=== PATIENT | male | born 1960 | race Caucasian/White ===

== ENCOUNTER 2018-02-13 08:57 | Emergency (ER) | payer OTHER ==
[2018-02-13] MEDS: PROCHLORPERAZINE 10 MG INJ IV (09:41)
[2018-02-13] MEDS: KETOROLAC 15 MG INJ IV (09:41)
[2018-02-13] MEDS: DIPHENHYDRAMINE 50 MG INJ IV (09:41)
[2018-02-13] MEDS: SOD CHLORIDE 0.9% 1,000 ML IV (09:41)
[2018-02-13 09:52] LABS: ADD MAN DIFF? NO
[2018-02-13 10:14] LABS: ANION GAP 19 (8-16); BLOOD UREA NITROGEN 18 mg/dl (7-20); CALCIUM 10.2 mg/dl (8.4-10.2); CARBON DIOXIDE 32 mmol/L (21-31); CHLORIDE 106 mmol/L (97-110); CREATININE 0.82 mg/dl (0.61-1.24); GLUCOSE 99 mg/dl (70-220); POTASSIUM 4.5 mmol/L (3.5-5.1); SODIUM 152 mmol/L (135-144)
[2018-02-13 10:36] LABS: BASOPHIL # 0.1 10^3/ul (0.0-0.1); BASOPHILS % 0.8 % (0.0-2.0); EOSINOPHILS # 0.2 10^3/ul (0.0-0.5); EOSINOPHILS % 2.5 % (0.0-7.0); HEMATOCRIT 45.9 % (42.0-52.0); HEMOGLOBIN 15.3 g/dl (14.0-18.0); LYMPHOCYTES # 2.2 10^3/ul (0.8-2.9); LYMPHOCYTES % 36.2 % (15.0-51.0); MEAN CORPUSCULAR HEMOGLOBIN 31.4 pg (29.0-33.0); MEAN CORPUSCULAR HGB CONC 33.3 g/dl (32.0-37.0); MEAN CORPUSCULAR VOLUME 94.1 fl (82.0-101.0); MEAN PLATELET VOLUME 11.2 fl (7.4-10.4); MONOCYTE # 0.4 10^3/ul (0.3-0.9); MONOCYTES % 7.3 % (0.0-11.0); NEUTROPHIL # 3.2 10^3/ul (1.6-7.5); NEUTROPHILS % 52.9 % (39.0-77.0); PLATELET COUNT 270 10^3/UL (140-415); RED BLOOD COUNT 4.88 10^6/ul (4.70-6.10); RED CELL DISTRIBUTION WIDTH 12.6 % (11.5-14.5)
== END 2018-02-13 12:11 | disposition home or self-care (01) ==
LOC: E/R 08:57
DX: R51 Headache (principal); I25.10 Atherosclerotic heart disease of native coronary artery without angina pectoris; Z98.61 Coronary angioplasty status
CPT/HCPCS: 36415; 70450; 80048; 85025; 96374; 96375; 99285-25

== ENCOUNTER 2018-05-23 10:08 | Inpatient (IN) | payer OTHER ==
[2018-05-23] MEDS: ASPIRIN 325 MG TAB PO (10:41)
[2018-05-23] MEDS: NITROGLYCERIN 2% 1 GM OINT PKT TD (10:41)
[2018-05-23] MEDS: ONDANSETRON 4 MG INJ IV (10:41)
[2018-05-23] MEDS: HYDROmorphONE 1 MG/ML SYG IV (10:41)
[2018-05-23 10:42] LABS: ADD MAN DIFF? NO
[2018-05-23 10:46] LABS: BASOPHILS % 0.8 % (0.0-2.0); EOSINOPHILS # 0.1 10^3/ul (0.0-0.5); EOSINOPHILS % 2.5 % (0.0-7.0); HEMATOCRIT 43.6 % (42.0-52.0); HEMOGLOBIN 14.4 g/dl (14.0-18.0); LYMPHOCYTES # 1.8 10^3/ul (0.8-2.9); LYMPHOCYTES % 36.6 % (15.0-51.0); MEAN CORPUSCULAR HEMOGLOBIN 31.2 pg (29.0-33.0); MEAN CORPUSCULAR VOLUME 94.4 fl (82.0-101.0); MEAN PLATELET VOLUME 11.1 fl (7.4-10.4); MONOCYTE # 0.4 10^3/ul (0.3-0.9); MONOCYTES % 7.3 % (0.0-11.0); NEUTROPHIL # 2.5 10^3/ul (1.6-7.5); NEUTROPHILS % 52.6 % (39.0-77.0); PLATELET COUNT 204 10^3/UL (140-415); RED BLOOD COUNT 4.62 10^6/ul (4.70-6.10); RED CELL DISTRIBUTION WIDTH 12.8 % (11.5-14.5)
[2018-05-23 10:46] LABS: WHITE BLOOD COUNT 4.8 10^3/ul (4.8-10.8)
[2018-05-23 11:02] LABS: ANION GAP 11 (8-16); BLOOD UREA NITROGEN 14 mg/dl (7-20); CALCIUM 9.5 mg/dl (8.4-10.2); CARBON DIOXIDE 27 mmol/L (21-31); CHLORIDE 112 mmol/L (97-110); CREATININE 0.82 mg/dl (0.61-1.24); GLUCOSE 89 mg/dl (70-220); SODIUM 146 mmol/L (135-144)
[2018-05-23 11:13] LABS: TROPONIN-I < 0.010 ng/ml (0.000-0.120)
[2018-05-23] MEDS ORDERED: ONDANSETRON 4 MG INJ IV (12:00)
[2018-05-23 14:35] LABS: CHOL/HDL RATIO 2.9 RATIO; HDL CHOLESTEROL 60 mg/dl (28-71); LDL CHOLESTEROL,CALCULATED 88 mg/dl; TRIGLYCERIDES 138 mg/dl (0-149)
[2018-05-23 14:35] LABS: CHOLESTEROL 176 mg/dl (100-200)
[2018-05-23 15:12] LABS: HEMOGLOBIN A1C 5.5 % (0-5.9)
[2018-05-23] MEDS: ACETAMINOPHEN 325 MG TAB PO (15:13)
[2018-05-23 17:14] LABS: TROPONIN-I < 0.010 ng/ml (0.000-0.120)
[2018-05-23] MEDS: ATORVASTATIN 40 MG TAB PO (20:06)
[2018-05-23] MEDS: IBUPROFEN 400 MG TAB PO (23:15)
[2018-05-23] MEDS: ZOLPIDEM 5 MG TAB PO (23:49)
[2018-05-24 00:04] LABS: TROPONIN-I < 0.010 ng/ml (0.000-0.120)
[2018-05-24 08:03] LABS: ADD MAN DIFF? NO
[2018-05-24 08:06] LABS: WHITE BLOOD COUNT 5.4 10^3/ul (4.8-10.8)
[2018-05-24 08:06] LABS: BASOPHILS % 0.7 % (0.0-2.0); EOSINOPHILS # 0.2 10^3/ul (0.0-0.5); EOSINOPHILS % 2.8 % (0.0-7.0); HEMATOCRIT 42.4 % (42.0-52.0); LYMPHOCYTES # 1.8 10^3/ul (0.8-2.9); LYMPHOCYTES % 33.1 % (15.0-51.0); MEAN CORPUSCULAR HEMOGLOBIN 31.3 pg (29.0-33.0); MEAN CORPUSCULAR VOLUME 94.9 fl (82.0-101.0); MEAN PLATELET VOLUME 11.7 fl (7.4-10.4); MONOCYTE # 0.4 10^3/ul (0.3-0.9); MONOCYTES % 8.1 % (0.0-11.0); NEUTROPHILS % 55.1 % (39.0-77.0); PLATELET COUNT 202 10^3/UL (140-415); RED BLOOD COUNT 4.47 10^6/ul (4.70-6.10); RED CELL DISTRIBUTION WIDTH 12.5 % (11.5-14.5)
[2018-05-24 08:31] LABS: ANION GAP 12 (8-16); BLOOD UREA NITROGEN 17 mg/dl (7-20); CALCIUM 9.3 mg/dl (8.4-10.2); CARBON DIOXIDE 28 mmol/L (21-31); CHLORIDE 106 mmol/L (97-110); CREATININE 0.91 mg/dl (0.61-1.24); GLUCOSE 76 mg/dl (70-220); MAGNESIUM 2.1 mg/dl (1.7-2.5); PHOSPHORUS 3.3 mg/dl (2.5-4.9); POTASSIUM 4.4 mmol/L (3.5-5.1); SODIUM 142 mmol/L (135-144)
[2018-05-24] MEDS: CITALOPRAM 20 MG TAB PO (08:48)
[2018-05-24] MEDS: CHOLECALCIFEROL 2,000 UNIT CAP PO (08:48)
[2018-05-24] MEDS: ASPIRIN (EC) 81 MG TAB PO (08:48)
[2018-05-24] MEDS: LEVOTHYROXINE 25 MCG TAB PO (08:48)
[2018-05-24] MEDS: GABAPENTIN 100 MG CAP PO (08:48)
[2018-05-24] MEDS ORDERED: DOCUSATE SODIUM 100 MG CAP PO (20:30)
[2018-05-24] MEDS ORDERED: morphine 2 MG INJ IV (20:30)
[2018-05-24] MEDS ORDERED: HYDROCODONE/APAP (10/325) TAB PO (20:30)
[2018-05-24] MEDS: ZOLPIDEM 5 MG TAB PO (21:39)
[2018-05-24] MEDS: ATORVASTATIN 40 MG TAB PO (21:39)
[2018-05-25 07:40] LABS: ADD MAN DIFF? NO
[2018-05-25 07:41] LABS: BASOPHIL # 0.1 10^3/ul (0.0-0.1); EOSINOPHILS # 0.1 10^3/ul (0.0-0.5); EOSINOPHILS % 2.2 % (0.0-7.0); HEMATOCRIT 43.7 % (42.0-52.0); HEMOGLOBIN 14.4 g/dl (14.0-18.0); LYMPHOCYTES # 2.1 10^3/ul (0.8-2.9); LYMPHOCYTES % 34.8 % (15.0-51.0); MEAN CORPUSCULAR HEMOGLOBIN 30.9 pg (29.0-33.0); MEAN CORPUSCULAR VOLUME 93.8 fl (82.0-101.0); MEAN PLATELET VOLUME 11.1 fl (7.4-10.4); MONOCYTE # 0.5 10^3/ul (0.3-0.9); MONOCYTES % 8.3 % (0.0-11.0); NEUTROPHIL # 3.2 10^3/ul (1.6-7.5); NEUTROPHILS % 53.5 % (39.0-77.0); PLATELET COUNT 210 10^3/UL (140-415); RED BLOOD COUNT 4.66 10^6/ul (4.70-6.10); RED CELL DISTRIBUTION WIDTH 12.5 % (11.5-14.5)
[2018-05-25 07:49] LABS: HEMOGLOBIN A1C 5.6 % (0-5.9)
[2018-05-25 08:05] LABS: INR 0.95; PROTIME 12.8 Sec (11.9-14.9)
[2018-05-25 08:19] LABS: LIPASE 35 U/L (23-300)
[2018-05-25 08:20] LABS: ALANINE AMINOTRANSFERASE 27 IU/L (13-69); ALBUMIN 4.6 g/dl (3.3-4.9); ALBUMIN/GLOBULIN RATIO 1.64; ALKALINE PHOSPHATASE 74 IU/L (42-121); ANION GAP 11 (8-16); ASPARTATE AMINO TRANSFERASE 26 IU/L (15-46); BLOOD UREA NITROGEN 17 mg/dl (7-20); CALCIUM 9.3 mg/dl (8.4-10.2); CARBON DIOXIDE 28 mmol/L (21-31); CHLORIDE 107 mmol/L (97-110); CREATININE 0.85 mg/dl (0.61-1.24); GLUCOSE 90 mg/dl (70-220); MAGNESIUM 2.1 mg/dl (1.7-2.5); PHOSPHORUS 3.3 mg/dl (2.5-4.9); POTASSIUM 4.6 mmol/L (3.5-5.1); SODIUM 141 mmol/L (135-144); TOTAL PROTEIN 7.4 g/dl (6.1-8.1)
[2018-05-25] MEDS: CHOLECALCIFEROL 2,000 UNIT CAP PO (09:07)
[2018-05-25] MEDS: GABAPENTIN 100 MG CAP PO (09:07)
[2018-05-25] MEDS: ASPIRIN (EC) 81 MG TAB PO (09:07)
[2018-05-25] MEDS: LEVOTHYROXINE 25 MCG TAB PO (09:07)
[2018-05-25] MEDS: CITALOPRAM 20 MG TAB PO (09:07)
[2018-05-25] MEDS: ENOXAPARIN 40 MG/0.4 ML SYG SC (09:11)
[2018-05-25] MEDS: ZOLPIDEM 5 MG TAB PO (20:58)
[2018-05-25] MEDS: ATORVASTATIN 40 MG TAB PO (20:58)
[2018-05-25] MEDS: IBUPROFEN 400 MG TAB PO (20:58)
[2018-05-26 07:26] LABS: ADD MAN DIFF? NO
[2018-05-26 07:39] LABS: BASOPHIL # 0.1 10^3/ul (0.0-0.1); BASOPHILS % 1.2 % (0.0-2.0); EOSINOPHILS # 0.1 10^3/ul (0.0-0.5); EOSINOPHILS % 1.5 % (0.0-7.0); HEMATOCRIT 44.9 % (42.0-52.0); HEMOGLOBIN 15.1 g/dl (14.0-18.0); LYMPHOCYTES # 1.9 10^3/ul (0.8-2.9); LYMPHOCYTES % 31.7 % (15.0-51.0); MEAN CORPUSCULAR HEMOGLOBIN 31.4 pg (29.0-33.0); MEAN CORPUSCULAR HGB CONC 33.6 g/dl (32.0-37.0); MEAN CORPUSCULAR VOLUME 93.3 fl (82.0-101.0); MEAN PLATELET VOLUME 11.2 fl (7.4-10.4); MONOCYTE # 0.6 10^3/ul (0.3-0.9); MONOCYTES % 9.1 % (0.0-11.0); NEUTROPHIL # 3.4 10^3/ul (1.6-7.5); NEUTROPHILS % 56.3 % (39.0-77.0); PLATELET COUNT 212 10^3/UL (140-415); RED BLOOD COUNT 4.81 10^6/ul (4.70-6.10); RED CELL DISTRIBUTION WIDTH 12.3 % (11.5-14.5)
[2018-05-26 07:39] LABS: WHITE BLOOD COUNT 6.1 10^3/ul (4.8-10.8)
[2018-05-26 07:52] LABS: ALANINE AMINOTRANSFERASE 28 IU/L (13-69); ALBUMIN 4.6 g/dl (3.3-4.9); ALBUMIN/GLOBULIN RATIO 1.53; ALKALINE PHOSPHATASE 79 IU/L (42-121); ANION GAP 14 (8-16); ASPARTATE AMINO TRANSFERASE 31 IU/L (15-46); BILIRUBIN,INDIRECT 1.1 mg/dl (0-1.1); BILIRUBIN,TOTAL 1.1 mg/dl (0.2-1.3); BLOOD UREA NITROGEN 22 mg/dl (7-20); CALCIUM 9.4 mg/dl (8.4-10.2); CARBON DIOXIDE 27 mmol/L (21-31); CHLORIDE 105 mmol/L (97-110); CREATININE 0.91 mg/dl (0.61-1.24); GLUCOSE 89 mg/dl (70-220); MAGNESIUM 2.1 mg/dl (1.7-2.5); PHOSPHORUS 3.4 mg/dl (2.5-4.9); POTASSIUM 4.8 mmol/L (3.5-5.1); SODIUM 141 mmol/L (135-144); TOTAL PROTEIN 7.6 g/dl (6.1-8.1)
[2018-05-26 07:58] LABS: LIPASE 47 U/L (23-300)
[2018-05-26 08:00] LABS: TROPONIN-I < 0.010 ng/ml (0.000-0.120)
[2018-05-26 08:01] LABS: INR 1.03; PROTIME 13.6 Sec (11.9-14.9); PT RATIO 1.1
[2018-05-26] MEDS: CITALOPRAM 20 MG TAB PO (08:44)
[2018-05-26] MEDS: LEVOTHYROXINE 25 MCG TAB PO (08:44)
[2018-05-26] MEDS: ASPIRIN (EC) 81 MG TAB PO (08:44)
[2018-05-26] MEDS: GABAPENTIN 100 MG CAP PO (08:44)
[2018-05-26] MEDS: CHOLECALCIFEROL 2,000 UNIT CAP PO (08:45)
[2018-05-26] MEDS: ENOXAPARIN 40 MG/0.4 ML SYG SC (09:04)
[2018-05-26] MEDS: SOD CHLORIDE 0.45% 1,000 ML IV (12:14)
[2018-05-26] MEDS: BISACODYL (EC) 5 MG TAB PO ×2 (14:42→16:54)
[2018-05-26 15:06] LABS: HEMATOCRIT 41.6 % (42.0-52.0); HEMOGLOBIN 14.3 g/dl (14.0-18.0)
[2018-05-26] MEDS: PEG/ELECTROLYTES 4L BTL PO (16:55)
[2018-05-26] MEDS: ATORVASTATIN 40 MG TAB PO (21:27)
[2018-05-26] MEDS: ZOLPIDEM 5 MG TAB PO (21:52)
[2018-05-27] MEDS: BISACODYL (EC) 5 MG TAB PO (04:49)
[2018-05-27] MEDS: PEG/ELECTROLYTES 4L BTL PO (04:49)
[2018-05-27 07:58] LABS: ADD MAN DIFF? NO
[2018-05-27 08:03] LABS: BASOPHIL # 0.1 10^3/ul (0.0-0.1); BASOPHILS % 0.9 % (0.0-2.0); EOSINOPHILS # 0.1 10^3/ul (0.0-0.5); EOSINOPHILS % 2.2 % (0.0-7.0); HEMATOCRIT 45.2 % (42.0-52.0); LYMPHOCYTES # 2.3 10^3/ul (0.8-2.9); LYMPHOCYTES % 35.3 % (15.0-51.0); MEAN CORPUSCULAR HEMOGLOBIN 30.4 pg (29.0-33.0); MEAN CORPUSCULAR HGB CONC 33.2 g/dl (32.0-37.0); MEAN CORPUSCULAR VOLUME 91.7 fl (82.0-101.0); MEAN PLATELET VOLUME 11.3 fl (7.4-10.4); MONOCYTE # 0.6 10^3/ul (0.3-0.9); MONOCYTES % 9.7 % (0.0-11.0); NEUTROPHIL # 3.3 10^3/ul (1.6-7.5); NEUTROPHILS % 51.6 % (39.0-77.0); PLATELET COUNT 224 10^3/UL (140-415); RED BLOOD COUNT 4.93 10^6/ul (4.70-6.10); RED CELL DISTRIBUTION WIDTH 12.5 % (11.5-14.5)
[2018-05-27 08:03] LABS: WHITE BLOOD COUNT 6.4 10^3/ul (4.8-10.8)
[2018-05-27 08:42] LABS: ANION GAP 14 (8-16); BLOOD UREA NITROGEN 18 mg/dl (7-20); CALCIUM 9.6 mg/dl (8.4-10.2); CARBON DIOXIDE 28 mmol/L (21-31); CHLORIDE 104 mmol/L (97-110); GLUCOSE 84 mg/dl (70-220); MAGNESIUM 2.1 mg/dl (1.7-2.5); PHOSPHORUS 3.5 mg/dl (2.5-4.9); POTASSIUM 3.9 mmol/L (3.5-5.1); SODIUM 142 mmol/L (135-144)
[2018-05-27] MEDS: ENOXAPARIN 40 MG/0.4 ML SYG SC (09:00)
[2018-05-27] MEDS: SOD CHLORIDE 0.45% 1,000 ML IV (09:07)
[2018-05-27] MEDS: CITALOPRAM 20 MG TAB PO (09:07)
[2018-05-27] MEDS: GABAPENTIN 100 MG CAP PO (09:07)
[2018-05-27] MEDS: ASPIRIN (EC) 81 MG TAB PO (09:07)
[2018-05-27] MEDS: LEVOTHYROXINE 25 MCG TAB PO (09:07)
[2018-05-27] MEDS: CHOLECALCIFEROL 2,000 UNIT CAP PO (09:07)
[2018-05-27] MEDS: REGADENOSON 0.4 MG/5 ML SYG (13:19)
[2018-05-27] MEDS: LIDOCAINE 100 MG SYRINGE (14:15)
[2018-05-27] MEDS: PROPOFOL 40 ML (14:15)
[2018-05-27] MEDS: ATORVASTATIN 40 MG TAB PO (20:48)
[2018-05-27] MEDS: ZOLPIDEM 5 MG TAB PO (21:55)
[2018-05-28] MEDS: SOD CHLORIDE 0.45% 1,000 ML IV (03:30)
[2018-05-28] MEDS ORDERED: MIDAZOLAM 1 MG/ML 2 ML INJ (07:43)
[2018-05-28] MEDS ORDERED: LIDOCAINE 1% (MDV) 10 ML INJ (07:43)
[2018-05-28] MEDS ORDERED: HEPARIN 1000 UNITS/ML 10 ML INJ (07:43)
[2018-05-28] MEDS ORDERED: FENTAnyl 50 MCG/ML VIAL (07:43)
[2018-05-28] MEDS ORDERED: VERAPAMIL 5 MG INJ (07:44)
[2018-05-28] MEDS ORDERED: NITROGLYCERIN (IC) 100 MCG/ML INJ (07:44)
[2018-05-28] MEDS ORDERED: SOD CHLORIDE 0.9% 500 ML (08:07)
[2018-05-28] MEDS ORDERED: CLOPIDOGREL 300 MG TAB ×2 (08:11→08:34)
[2018-05-28] MEDS ORDERED: BIVALIRUDIN 250MG /NS 50 ML 100 ML IVPB (08:30)
[2018-05-28] MEDS ORDERED: NITROGLYCERIN (SL) 0.4 MG TAB SL (09:00)
[2018-05-28] MEDS ORDERED: OXYCODONE/ACETAMINOPHEN (5/325) TAB PO ×2 (09:00)
[2018-05-28] MEDS ORDERED: morphine 2 MG INJ IV (09:00)
[2018-05-28] MEDS ORDERED: ACETAMINOPHEN 325 MG TAB PO (09:00)
[2018-05-28] MEDS: ASPIRIN (EC) 81 MG TAB PO (09:31)
[2018-05-28] MEDS: CHOLECALCIFEROL 2,000 UNIT CAP PO (09:31)
[2018-05-28] MEDS: GABAPENTIN 100 MG CAP PO (09:31)
[2018-05-28] MEDS: LEVOTHYROXINE 25 MCG TAB PO (09:31)
[2018-05-28] MEDS: SOD CHLORIDE 0.9% 1,000 ML IV (09:32)
[2018-05-28] MEDS: CITALOPRAM 20 MG TAB PO (09:32)
[2018-05-28] MEDS ORDERED: ATROPINE 1 MG/10 ML SYRINGE (11:45)
[2018-05-28 17:31] LABS: ADD MAN DIFF? NO
[2018-05-28 17:33] LABS: WHITE BLOOD COUNT 6.3 10^3/ul (4.8-10.8)
[2018-05-28 17:33] LABS: BASOPHILS % 0.6 % (0.0-2.0); EOSINOPHILS # 0.1 10^3/ul (0.0-0.5); EOSINOPHILS % 1.3 % (0.0-7.0); HEMATOCRIT 39.6 % (42.0-52.0); HEMOGLOBIN 13.1 g/dl (14.0-18.0); LYMPHOCYTES # 1.5 10^3/ul (0.8-2.9); LYMPHOCYTES % 24.1 % (15.0-51.0); MEAN CORPUSCULAR HEMOGLOBIN 30.5 pg (29.0-33.0); MEAN CORPUSCULAR HGB CONC 33.1 g/dl (32.0-37.0); MEAN CORPUSCULAR VOLUME 92.1 fl (82.0-101.0); MEAN PLATELET VOLUME 11.1 fl (7.4-10.4); MONOCYTE # 0.5 10^3/ul (0.3-0.9); MONOCYTES % 7.9 % (0.0-11.0); NEUTROPHIL # 4.2 10^3/ul (1.6-7.5); NEUTROPHILS % 65.9 % (39.0-77.0); PLATELET COUNT 184 10^3/UL (140-415); RED CELL DISTRIBUTION WIDTH 12.6 % (11.5-14.5)
[2018-05-28 17:54] LABS: ANION GAP 10 (8-16); BLOOD UREA NITROGEN 14 mg/dl (7-20); CALCIUM 8.8 mg/dl (8.4-10.2); CARBON DIOXIDE 25 mmol/L (21-31); CHLORIDE 108 mmol/L (97-110); GLUCOSE 73 mg/dl (70-220); PHOSPHORUS 2.9 mg/dl (2.5-4.9); POTASSIUM 3.7 mmol/L (3.5-5.1); SODIUM 139 mmol/L (135-144)
[2018-05-28] MEDS: ATORVASTATIN 40 MG TAB PO (21:28)
[2018-05-28] MEDS: ZOLPIDEM 5 MG TAB PO (22:58)
[2018-05-29 06:20] LABS: ADD MAN DIFF? NO
[2018-05-29 06:27] LABS: BASOPHILS % 0.6 % (0.0-2.0); EOSINOPHILS # 0.1 10^3/ul (0.0-0.5); EOSINOPHILS % 1.8 % (0.0-7.0); HEMATOCRIT 40.6 % (42.0-52.0); HEMOGLOBIN 13.7 g/dl (14.0-18.0); LYMPHOCYTES # 1.9 10^3/ul (0.8-2.9); LYMPHOCYTES % 26.1 % (15.0-51.0); MEAN CORPUSCULAR HEMOGLOBIN 30.9 pg (29.0-33.0); MEAN CORPUSCULAR HGB CONC 33.7 g/dl (32.0-37.0); MEAN CORPUSCULAR VOLUME 91.4 fl (82.0-101.0); MEAN PLATELET VOLUME 11.5 fl (7.4-10.4); MONOCYTE # 0.7 10^3/ul (0.3-0.9); MONOCYTES % 9.2 % (0.0-11.0); NEUTROPHIL # 4.5 10^3/ul (1.6-7.5); PLATELET COUNT 198 10^3/UL (140-415); RED BLOOD COUNT 4.44 10^6/ul (4.70-6.10); RED CELL DISTRIBUTION WIDTH 12.5 % (11.5-14.5)
[2018-05-29 06:27] LABS: WHITE BLOOD COUNT 7.3 10^3/ul (4.8-10.8)
[2018-05-29 06:45] LABS: INR 1.02; PROTIME 13.5 Sec (11.9-14.9); PT RATIO 1.1
[2018-05-29 06:53] LABS: CREATINE KINASE 206 IU/L (23-200)
[2018-05-29 07:03] LABS: ALANINE AMINOTRANSFERASE 27 IU/L (13-69); ALBUMIN 4.1 g/dl (3.3-4.9); ALBUMIN/GLOBULIN RATIO 1.41; ALKALINE PHOSPHATASE 78 IU/L (42-121); ANION GAP 12 (8-16); ASPARTATE AMINO TRANSFERASE 32 IU/L (15-46); BILIRUBIN,INDIRECT 0.7 mg/dl (0-1.1); BILIRUBIN,TOTAL 0.7 mg/dl (0.2-1.3); BLOOD UREA NITROGEN 18 mg/dl (7-20); CALCIUM 9.3 mg/dl (8.4-10.2); CARBON DIOXIDE 24 mmol/L (21-31); CHLORIDE 108 mmol/L (97-110); CREATININE 0.87 mg/dl (0.61-1.24); GLUCOSE 88 mg/dl (70-220); POTASSIUM 4.1 mmol/L (3.5-5.1); SODIUM 140 mmol/L (135-144)
[2018-05-29 07:06] LABS: CK INDEX 1.5; CK-MB 3.01 ng/ml (0.0-2.4); TROPONIN-I 0.121 ng/ml (0.000-0.120)
[2018-05-29] MEDS: ASPIRIN (EC) 81 MG TAB PO (08:23)
[2018-05-29] MEDS: GABAPENTIN 100 MG CAP PO (08:23)
[2018-05-29] MEDS: CITALOPRAM 20 MG TAB PO (08:23)
[2018-05-29] MEDS: LEVOTHYROXINE 25 MCG TAB PO (08:23)
[2018-05-29] MEDS: CHOLECALCIFEROL 2,000 UNIT CAP PO (08:23)
[2018-05-29] MEDS: CLOPIDOGREL 75 MG TAB PO (08:27)
== END 2018-05-29 11:37 | disposition home or self-care (01) | DRG 247 ==
LOC: E/R 10:08 → ICU 05-28 14:20 → MS4 11:34 → TEL 05-28 14:46 → 6WM 05-28 14:47
PROC: 0DBL8ZX Excision of Transverse Colon, Via Natural or Artificial Opening Endoscopic, Diagnostic (ICD-10-PCS; principal; 2018-05-27 13:30)
PROC: 027034Z Dilation of Coronary Artery, One Artery with Drug-eluting Intraluminal Device, Percutaneous Approach (ICD-10-PCS; 2018-05-27 13:30)
PROC: 4A023N7 Measurement of Cardiac Sampling and Pressure, Left Heart, Percutaneous Approach (ICD-10-PCS; 2018-05-27 13:30)
PROC: B211YZZ Fluoroscopy of Multiple Coronary Arteries using Other Contrast (ICD-10-PCS; 2018-05-27 13:30)
DX: I25.10 Atherosclerotic heart disease of native coronary artery without angina pectoris (principal); I24.9 Acute ischemic heart disease, unspecified; K64.8 Other hemorrhoids; D12.3 Benign neoplasm of transverse colon; E03.9 Hypothyroidism, unspecified; I10 Essential (primary) hypertension; E78.5 Hyperlipidemia, unspecified; K59.00 Constipation, unspecified; R07.89 Other chest pain; F32.9 Major depressive disorder, single episode, unspecified; I25.2 Old myocardial infarction; Z91.14 Patient's other noncompliance with medication regimen; Z79.82 Long term (current) use of aspirin; Z79.02 Long term (current) use of antithrombotics/antiplatelets; Z95.5 Presence of coronary angioplasty implant and graft
CPT/HCPCS: 36415; 71045; 78452; 80048; 80053; 80061; 82550; 82553; 83036; 83690; 83735; 84100; 84443; 84484; 85014; 85018; 85025; 85610; 88305; 93005; 93017; 93306; 93458; 96374; 96375; 99285-25; G0378